=== PATIENT | female | born 1950 | race Two or more races ===

== ENCOUNTER 2017-08-23 16:50 | Emergency (ER) | payer MEDICARE, OTHER ==
[~2017-08-23] VITALS: Ht 149.9 cm; Wt 59.0 kg
[2017-08-23 18:04] LABS: BASOPHILS % (AUTO) 0.4 % (0.0-2.0); EOSINOPHILS % (AUTO) 0.1 % (0.0-3.0); HEMATOCRIT 37.9 % (37.0-47.0); HEMOGLOBIN 12.7 G/DL (12.0-16.0); LYMPHOCYTES % (AUTO) 14.1 % (20.0-45.0); MEAN CORPUSCULAR VOLUME 91 FL (80-99); MONOCYTES % (AUTO) 2.7 % (1.0-10.0); NEUTROPHILS % (AUTO) 82.7 % (45.0-75.0); PLATELET COUNT 222 K/UL (150-450); RED BLOOD COUNT 4.18 M/UL (4.20-5.40); RED CELL DISTRIBUTION WIDTH 11.9 % (11.6-14.8); WHITE BLOOD COUNT 11.9 K/UL (4.8-10.8)
[2017-08-23 18:09] LABS: APPEARANCE,URINE CLEAR; BILIRUBIN, URINE NEGATIVE (NEGATIVE); COLOR,URINE PALE YELLOW; GLUCOSE, URINE (UA) NEGATIVE (NEGATIVE); KETONES,URINE 2+ (NEGATIVE); LEUKOCYTE ESTERASE ,URINE NEGATIVE (NEGATIVE); NITRITE,URINE NEGATIVE (NEGATIVE); PH,URINE 5 (4.5-8.0); PROTEIN,URINE 2+ (NEGATIVE); UROBILINOGEN,URINE NORMAL MG/DL (0.0-1.0)
[2017-08-23 18:11] VITALS: BP 99/62
[2017-08-23 18:18] LABS: ANION GAP 16 mmol/L (5-15); BLOOD UREA NITROGEN 10 mg/dL (7-18); CALCIUM 8.3 MG/DL (8.5-10.1); CARBON DIOXIDE 21 MMOL/L (21-32); CHLORIDE 105 MMOL/L (98-107); CREATININE 0.6 MG/DL (0.55-1.30); POTASSIUM 3.2 MMOL/L (3.5-5.1); SODIUM 142 MMOL/L (136-145)
[2017-08-23 18:33] LABS: ALANINE AMINOTRANSFERASE 53 U/L (12-78); ALKALINE PHOSPHATASE 155 U/L (46-116); ASPARTATE AMINO TRANSFERASE 28 U/L (15-37); BILIRUBIN,TOTAL 0.1 MG/DL (0.2-1.0); CKMB 0.9 NG/ML (0.0-3.6); CREATINE KINASE 53 U/L (26-308)
[2017-08-23 19:18] VITALS: BP 121/67
[2017-08-23] MEDS ORDERED: NKM (19:18)
[2017-08-23 21:50] VITALS: BP 106/66
--- NOTE | 2017-08-23 21:50 | Emergency Room Report ---
History of Present Illness General Chief Complaint: Altered Level of Consciousness Source: Family Member Present Illness HPI Patient is a 66-year-old female brought in by EMS after increased altered level consciousness. Patient was noted to have increased confusion. Patient was noted to have the recent diagnosis of urinary infection. Per EMS patient was noted to have adequate blood sugar. She was given Narcan without any change in mental status. Allergies: Coded Allergies: No Known Allergies (Unverified , 08/23/17) Patient History Past Medical History: see triage record Reviewed Nursing Documentation: PMH: Agreed; PSxH: Agreed Nursing Documentation-PMH Past Medical History: No History, Except For Hx Hypertension: Yes Hx Diabetes: Yes History Of Psychiatric Problem: Yes - depression Review of Systems All Other Systems: negative except mentioned in HPI Physical Exam Vital Signs Date Time Temp Pulse Resp B/P (MAP) Pulse Ox O2 Delivery O2 Flow Rate FiO2 08/23/17 16:44 76 14 94/62 95 08/23/17 18:11 97.5 Room Air 97.5 Sp02 EP Interpretation: reviewed, normal General Appearance: normal inspection, well appearing, no apparent distress, alert, GCS 15, obese Head: atraumatic ENT: normal ENT inspection, hearing grossly normal, normal voice Neck: normal inspection, full range of motion, supple, no bony tend Respiratory: normal inspection, lungs clear, normal breath sounds, no respiratory distress, no retraction, no wheezing Cardiovascular #1: regular rate, rhythm, no edema Gastrointestinal: normal inspection, normal bowel sounds, non tender, soft, no guarding, no hernia Genitourinary: no CVA tenderness Musculoskeletal: normal inspection, back normal, normal range of motion Neurologic: normal inspection, alert, responsive, background investigator III-XII nml as tested Psychiatric: normal inspection, judgement/insight normal, mood/affect normal Skin: normal inspection, normal color, no rash Medical Decision Making Diagnostic Impression: Primary Impression: Altered level of consciousness Additional Impression: Alcohol intoxication ER Course Patient presented for altered mental status. Differential diagnosis included but was not limited to ischemic stroke, subarachnoid hemorrhage, hypoglycemia, spinal cord injury, neurodegenerative disorder, urinary tract infection, alcohol intoxication, hypoxemia.Because of complexity of patient's case laboratory testing and imaging studies were ordered. The CT the head read by radiology showed no evidence of acute CVA or intracranial hemorrhage. The sinus disease was noted. The patient given IV fluids. Patient was noted to have elevated lactic acid level which is likely due to the patient's metformin. The patient showed evidence of infection. Blood alcohol to be markedly elevated and patient had gradual improvement of her mental status. The time of discharge patient was awake alert oriented and plan for self care. The patient contacted her daughter. The patient is advised to follow up with primary care doctor in 1-2 days. Patient is advised to return if any worsening condition or if any changes in status that are concerning. This report is dictated with [employer] bit sander software which may occasionally lead to discrepancies related to use of this software. Labs Test 08/23/17 17:04 08/23/17 17:35 08/23/17 17:48 Arterial Blood pH 7.320 (7.350-7.450) Arterial Blood Partial Pressure CO2 40.4 mmHg (35.0-45.0) Arterial Blood Partial Pressure O2 78.4 mmHg (75.0-100.0) Arterial Blood HCO3 20.6 mmol/L (22.0-26.0) Arterial Blood Oxygen Saturation 94.1 % (92.0-98.0) Arterial Blood Base Excess -5 Wilfrid Test Positive White Blood Count 11.9 K/UL (4.8-10.8) Red Blood Count 4.18 M/UL (4.20-5.40) Hemoglobin 12.7 G/DL (12.0-16.0) Hematocrit 37.9 % (37.0-47.0) Mean Corpuscular Volume 91 FL (80-99) Mean Corpuscular Hemoglobin 30.3 PG (27.0-31.0) Mean Corpuscular Hemoglobin Concent 33.4 G/DL (32.0-36.0) Red Cell Distribution Width 11.9 % (11.6-14.8) Platelet Count 222 K/UL (150-450) Mean Platelet Volume 8.4 FL (6.5-10.1) Neutrophils (%) (Auto) 82.7 % (45.0-75.0) Lymphocytes (%) (Auto) 14.1 % (20.0-45.0) Monocytes (%) (Auto) 2.7 % (1.0-10.0) Eosinophils (%) (Auto) 0.1 % (0.0-3.0) Basophils (%) (Auto) 0.4 % (0.0-2.0) Sodium Level 142 MMOL/L (136-145) Potassium Level 3.2 MMOL/L (3.5-5.1) Chloride Level 105 MMOL/L (98-107) Carbon Dioxide Level 21 MMOL/L (21-32) Anion Gap 16 mmol/L (5-15) Blood Urea Nitrogen 10 mg/dL (7-18) Creatinine 0.6 MG/DL (0.55-1.30) Estimat Glomerular Filtration Rate > 60 mL/min (>60) Glucose Level 167 MG/DL (74-106) Lactic Acid Level 5.20 mmol/L (0.66-2.22) Calcium Level 8.3 MG/DL (8.5-10.1) Total Bilirubin 0.1 MG/DL (0.2-1.0) Aspartate Amino Transf (AST/SGOT) 28 U/L (15-37) Alanine Aminotransferase (ALT/SGPT) 53 U/L (12-78) Alkaline Phosphatase 155 U/L (46-116) Total Creatine Kinase 53 U/L (26-308) Creatine Kinase MB 0.9 NG/ML (0.0-3.6) Creatine Kinase MB Relative Index 1.6 Troponin I 0.000 ng/mL (0.000-0.056) Pro-B-Type Natriuretic Peptide 70 pg/mL (0-125) Total Protein 8.1 G/DL (6.4-8.2) Albumin 4.0 G/DL (3.4-5.0) Globulin 4.1 g/dL Albumin/Globulin Ratio 1.0 (1.0-2.7) Salicylates Level 1.6 ug/mL (2.8-20) Acetaminophen Level < 2 MCG/ML (10-30) Serum Alcohol 158 mg/dL Urine Color Pale yellow Urine Appearance Clear Urine pH 5 (4.5-8.0) Urine Specific [place] 1.015 (1.005-1.035) Urine Protein 2+ (NEGATIVE) Urine Glucose (UA) Negative (NEGATIVE) Urine Ketones 2+ (NEGATIVE) Urine Occult Blood 1+ (NEGATIVE) Urine Nitrite Negative (NEGATIVE) Urine Bilirubin Negative (NEGATIVE) Urine Urobilinogen Normal MG/DL (0.0-1.0) Urine Leukocyte Esterase Negative (NEGATIVE) Urine RBC 0-2 /HPF (0 - 2) Urine WBC 0 /HPF (0 - 2) Urine Squamous Epithelial Cells Occasional /LPF Urine Amorphous Sediment Moderate /LPF (NONE) Urine Bacteria Few /HPF (NONE) Urine Opiates Screen Negative (NEGATIVE) Urine Barbiturates Screen Negative (NEGATIVE) Phencyclidine (PCP) Screen Negative (NEGATIVE) Urine Amphetamines Screen Negative (NEGATIVE) Urine Benzodiazepines Screen Negative (NEGATIVE) Urine Cocaine Screen Negative (NEGATIVE) Urine Marijuana (THC) Screen Negative (NEGATIVE) EKG Diagnostic Results Rate: normal Rhythm: NSR ST Segments: no acute changes Last Vital Signs Date Time Temp Pulse Resp B/P (MAP) Pulse Ox O2 Delivery O2 Flow Rate FiO2 08/23/17 19:18 97.5 80 14 121/67 99 Room Air 97.5 Status: improved Disposition: HOME, SELF-CARE Condition: Stable Patient Instructions: Alcohol Intoxication Omar Rousseau MD August 23, 2017 21:50
--- NOTE | 2017-08-24 09:47 | Diagnostic Imaging Report ---
Indication: Headache Technique: Contiguous 5 mm thick transaxial imaging of the head obtained in a Siem[employer] Sensation [address] scanner. Soft tissue and bone windows generated. Automatic Exposure Control was utilized. Total Dose length Product (DLP): 1298.[address] Dose Index Volume (CTDIvol): 70.38 mGy Comparison: none Findings: There is mild prominence of the ventricles, basal cisterns, and cerebral sulci consistent with atrophy. Mild, nonspecific, white matter hypoattenuation is noted throughout the brain consistent with chronic small vessel disease. There is no midline shift, edema, acute hemorrhage, mass effect, or abnormal extra-axial fluid collections. Bones and extra osseous soft tissues are unremarkable. Impression: No acute intracranial bleed, mass effect or edema. Mild atrophy of the brain. Nonspecific white matter hypoattenuation probably due to chronic small vessel disease. The CT scanner at [facility] is accredited by the [employer] and the scans are performed using dose optimization techniques as appropriate to a performed exam including Automatic Exposure control.
--- NOTE | 2017-08-24 10:49 | Diagnostic Imaging Report ---
Indication: Dyspnea Comparison: None A single view chest radiograph was obtained. Findings: Cardiomediastinal appearance is within normal limits for age. Pulmonary vascularity is appropriate. The diaphragmatic contour is smooth and costophrenic angles are sharp. No pleural effusions are identified. The bones are unremarkable. Impression: No acute findings
--- NOTE | 2017-08-28 15:02 | Cardiology Report ---
APPROVED REPORT EKG Measurement Heart [id number] CO [id number] [id number] Normal sinus rhythm Prolonged QT Abnormal ECG
== END 2017-08-23 21:50 | disposition home or self-care (01) ==
LOC: EDBD 16:50 → EMR 17:51
DX: R41.82 Altered mental status, unspecified (principal); F10.129 Alcohol abuse with intoxication, unspecified; I10 Essential (primary) hypertension; E11.9 Type 2 diabetes mellitus without complications; F32.9 Major depressive disorder, single episode, unspecified; R51 Headache
CPT/HCPCS: 36415; 36600; 70450; 71045; 80053; 80307; 81003; 82550; 82553; 82803; 83605; 83880; 84484; 85025; 87040; 93005; 96374; 99284; G0480; 80329